=== PATIENT | male | born 1955 | race Caucasian/White ===

== ENCOUNTER → 2023-12-08 06:31 | Day surgery (SDC) | payer MEDICARE, OTHER, SELFPAY | LOC: GI 06:31 | PROVIDERS: ATTENDING PHYSICIAN Internal Medicine Gastroenterology; FAMILY PHYSICIAN Internal Medicine | DX: Z12.11 Encounter for screening for malignant neoplasm of colon (principal); Z86.010 Personal history of colon polyps; K57.30 Diverticulosis of large intestine without perforation or abscess without bleeding; K64.8 Other hemorrhoids; D12.4 Benign neoplasm of descending colon | CPT/HCPCS: 45380; 88305 ==

== ENCOUNTER → 2024-02-26 16:07 | Outpatient (REF) | payer MEDICARE, OTHER, SELFPAY | LOC: RCS 16:07 | PROVIDERS: ATTENDING PHYSICIAN Internal Medicine Cardiovascular Disease; FAMILY PHYSICIAN Internal Medicine | DX: I25.2 Old myocardial infarction (principal); R00.2 Palpitations | CPT/HCPCS: 93005 ==

== ENCOUNTER 2024-02-27 20:41 | Emergency (ER) | payer MEDICARE, OTHER, SELFPAY ==
[2024-02-27 21:14] LABS: % Basophils 0.6 % (0-2); % Eosinophils 2.9 % (0-6); % Immature Granulocytes 0.3 % (0-0.5); % Lymphocytes 43.9 % (20.5-51.1); % Monocytes 11.7 % (1.7-9.3); % Neutrophils 40.6 % (42.2-75.2); Absolute Eosinophils 0.2 10^3/uL (0-0.7); Absolute Lymphocytes 3.2 10^3/uL (1.2-3.4); Absolute Monocytes 0.9 10^3/uL (0.1-0.6); Absolute Neutrophils 2.9 10^3/uL (1.4-6.5); Hematocrit 39.8 % (39.0-52.0); Mean Corp Hgb Conc. 35.2 g/dL (33.0-37.0); Mean Corpuscular Hgb 30.8 pg (27.0-31.0); Mean Corpuscular Volume 87.7 fL (80.0-94.0); Mean Platelet Volume 10.2 fL (7.4-10.4); Nucleated Red Blood Cells % 0 % (-); Platelet Count 153 10^3/uL (130-400); Red Blood Cell Count 4.54 10^6/uL (4.70-6.10); Red Cell Dist. Width 12.6 % (11.5-14.5); White Blood Cell Count 7.2 10^3/uL (4.8-10.8)
[2024-02-27 21:25] LABS: ALT (SGPT) 28 U/L (0-50); AST (SGOT) 30 U/L (17-59); Albumin 4.2 g/dl (3.5-5.0); Alkaline Phosphatase 79 U/L (38-126); Blood Urea Nitrogen 23 mg/dl (9-20); Calcium 9.8 mg/dl (8.4-10.2); Carbon Dioxide 26 mmol/L (22-30); Chloride 105 mmol/L (98-107); Glucose 91 mg/dl (70-99); Potassium 4.2 mmol/L (3.5-5.1); Sodium 138 mmol/L (135-145); Total Bilirubin 0.5 mg/dl (0.2-1.3); eGFR > 60.00
[2024-02-27 21:35] LABS: Troponin I < 0.012 ng/ml
[2024-02-27 22:57] VITALS: BP 125/76
[2024-02-27 23:43] VITALS: BP 120/83
[2024-02-28] VITALS: BP 106/57
--- NOTE | 2024-02-28 00:59 | ED.GENMED ---
History of Present Illness
General
Chief Complaint: Heart Rate Problem
Source: patient, records and spouse
Exam Limitations: none
Time Seen by Provider: 02/28/24 00:37
Nursing documentation reviewed up to this point in time: agreed with
Travel History
Have you had any contact with someone who has COVID-19?: No
Do you have any symptoms of coronavirus? Fever > 100 degrees, chills, cough, shortness of breath, sore throat, loss of taste or smell, muscle aches, or headache?: No
History of Present Illness
History of Present Illness:
68-year-old male presents with a fluttering feeling in his chest described as bubbling, different than his prior arrhythmia that was found on a Holter monitor few years ago he is on metoprolol atorvastatin baby aspirin drinks tea takes decaffeinated
coffee non-smoker no alcohol no chest pains no leg edema no fevers
Past History
Past History
ED Past Medical History: CAD, HTN, Hypercholesterolemia and [place]
ED Past Surgical History: Cardiac (1 stent) and Orthopedic
Social History
Tobacco: Non-smoker
Alcohol: None
Drug: None
Personal:
Living: with family
Employment: Employed
Family History
Family History: Early CAD
Review of Systems
Review of Systems
All Other Systems: ROS reviewed and negative except as documented in HPI and ROS
Constitutional: Denies fever or fatigue
Respiratory: Denies cough or trouble breathing
Cardiac: Reports palpitations; Denies chest pain, diaphoresis or syncope
: Reports no symptoms
Skin: Reports no symptoms
Neurological: Reports no symptoms
Phy Exam
Physical Exam
Physical Exam:
Physical Exam
General: no apparent distress, not acutely ill
Neck without jaundice
Heart: Regular
Lungs: no acute respiratory distress. clear bilaterally
Abdomen: Not tender
Neuro: alert and oriented. no focal neurological deficits
Skin: no rash
Psychiatric: well kept. interactive and cooperative
Extremities: no edema. no calf tenderness.
Course
Orders/Labs/Results
Orders:
Orders
02/27/24 20:47
EKG [Electrocardiogram (*1)] Urgent
Reason for Study: Palpitations
EKG- Treatment ONCE
02/27/24 21:02
Comprehensive Metabolic Panel Urgent
Magnesium Urgent
Comment: ADD ON
Troponin I Urgent
02/27/24 21:03
Complete Blood Count/With Diff Urgent
02/28/24 00:58
Add On- LAB Urgent
Tests Added?: magnesium
0.9% Sodium Chloride 500 ml [Nss] 500 ml IV BOLUS
02/28/24 00:59
Add On- LAB Urgent
Tests Added?: magnesium
Abnormal Lab Results
02/27/24 02/27/24
21:02 21:03
RBC 4.54 L 10^6/uL
(4.70-6.10)
Absolute Monos (auto) 0.9 H 10^3/uL
(0.1-0.6)
Neutrophils % 40.6 L %
(42.2-75.2)
Monocytes % 11.7 H %
(1.7-9.3)
BUN 23 H mg/dl
(9-20)
02/27/24 21:03
02/27/24 21:02
Vital Signs
Initial and Last Documented VS:
Initial Vital Signs
Temp Pulse Resp BP Pulse Ox
98.7 F 71 20 125/76 97
02/27/24 22:57 02/27/24 22:57 02/27/24 22:57 02/27/24 22:57 02/27/24 22:57
Last Documented Vital Signs
Temp Pulse Resp BP Pulse Ox
98.7 F 62 13 117/62 98
02/27/24 22:57 02/28/24 01:45 02/28/24 01:45 02/28/24 01:00 02/28/24 01:45
*Pulse Oximetry
Patient hypoxic: no
*EKG
Interpreted by ED Provider?: Yes
Interpretation: normal
Comparison EKG: no comparison EKG present
Heart Rate: 70
Rate: normal
Rhythm: sinus
Interval: normal interval
Ischemia: no ischemia
*Meringuer Interpretation
Rate: normal
Interpretation: normal
Heart Rate: 78
Rhythm: sinus and PVC's
*Critical Care Note
Total Time (30-74mins, 75-104mins- exclusive of procedures): Not Applicable
Data Reviewed
Review of Other/Old Records Reveals: Labs and Operative Reports
Source: patient
Update Note
Update Note:
Update labs are noted we will start some hydration, check magnesium, keep on manager cardiac prior records reviewed patient does have history of CAD and stenting he tells me his symptoms recently are not at all similar to his prior angina requiring
stenting
210 labs are noted
ED Attending Note
-
Portions of this chart may have been created with voice recognition software.� Occasional wrong word or��sound alike� substitutions may have occurred due to the inherent limitations of voice recognition software.
Discharge Plan
Departure
Patient Disposition: Home (Routine Discharge)
Date of Disposition: 02/28/24
Time of Disposition: 02:12
Patient with high blood pressure during this ER visit?: No
Condition: Good
Discharge Problem:
Heart palpitations
Instructions: Palpitations (DC)
Prescriptions:
No Action
atorvastatin 10 MG tablet
20 mg PO HS
clopidogrel 75 MG tablet
75 mg PO HS
aspirin 81 MG tablet,delayed release (DR/EC)
81 mg PO HS
metoprolol succinate 25 MG tablet extended release 24 hr
25 mg PO HS
calcium carbonate [Antacid (calcium carbonate)] 1 TABLET tablet,chewable
2 tab PO DAILYPRN PRN (Reason: indigestion)
melatonin 5 MG tablet
5 mg PO HS
pantoprazole 40 MG tablet,delayed release (DR/EC)
40 mg PO DAILY Qty: 90 3RF
methylprednisolone [Medrol (Wale)] 4 mg tablets,dose pack
4 mg PO DIRECTED Qty: 21 0RF
lidocaine [Lidoderm] 5 % adhesive patch,medicated
1 patch topical DAILY Qty: 30 0RF
Referrals:
Charissa Lama MD [Family Provider] -
Activity Restrictions/Additional Instructions:
Treat plenty of fluids limit your caffeine intake as discussed
Follow-up with cardiology as scheduled
Interventions
Interventions:
*Risk Screen - Suicide Last Done: 02/27/24 20:48
*General Assessment Last Done: 02/27/24 20:48
*Neglect/Abuse Screening Last Done: 02/27/24 20:48
ED- Cardiac Assessment Last Done: 02/27/24 23:46
ED- Pulmonary Assessment Last Done: 02/27/24 23:46
Discharge Date and Time
Print Language: ESTONIAN
[2024-02-28 01:00] VITALS: BP 117/62
[2024-02-28] MEDS: NSS 500 IV (01:28)
[2024-02-28 01:54] LABS: Magnesium 1.9 mg/dl (1.6-2.3)
[2024-02-28 02:00] VITALS: BP 111/72
== END 2024-02-28 02:27 | disposition home or self-care (01) ==
LOC: EMR 20:41
PROVIDERS: EMERGENCY PHYSICIAN Emergency Medicine; FAMILY PHYSICIAN Internal Medicine
DX: R00.2 Palpitations (principal); I25.10 Atherosclerotic heart disease of native coronary artery without angina pectoris; I10 Essential (primary) hypertension; E78.00 Pure hypercholesterolemia, unspecified; I25.2 Old myocardial infarction; I49.3 Ventricular premature depolarization; Z82.49 Family history of ischemic heart disease and other diseases of the circulatory system
CPT/HCPCS: 99283; 80053; 83735; 84484; 85025; 93005

== ENCOUNTER → 2024-10-14 13:37 | Outpatient (REF) | payer MEDICARE, OTHER, SELFPAY | LOC: DHSLP 13:37 | PROVIDERS: ATTENDING PHYSICIAN Internal Medicine; FAMILY PHYSICIAN Internal Medicine | DX: G47.33 Obstructive sleep apnea (adult) (pediatric) (principal) | CPT/HCPCS: 95800 ==

== ENCOUNTER 2024-11-14 14:15 | Emergency (ER) | payer MEDICARE, OTHER, SELFPAY ==
[2024-11-14 14:16] VITALS: BP 132/83
[2024-11-14] MEDS: TYLENOL 1000 MG PO (15:10)
[2024-11-14] MEDS: TORADOL 15 MG IV (15:10)
[2024-11-14] MEDS: VALIUM INJECTION 10 MG IV (15:11)
--- NOTE | 2024-11-14 15:11 | ED.GENMED ---
History of Present Illness
General
Chief Complaint: Musculo-Skeletal Complaint
Source: patient
Exam Limitations: none
Time Seen by Provider: 11/14/24 14:32
Nursing documentation reviewed up to this point in time: agreed with
History of Present Illness
History of Present Illness:
69 y/o M h/o CAD
chronic lumbar disc disease
s/p lumbar surgery years ago
has not had neck issues
says he woke up yesterday with soreness in his neck and felt limited ROM
he says yesterday in total he took 3 doses of 400 mg motrin wihtout relief and woke up today feeling more stiff
has very painful limited ROM
no weaknses, numbness, radiation of pain into arms or legs, fever/chills, trauma, blurry vision, dizziness
pt has not had cervical imaging in a while
nothing for pain today
Past History
Past History
ED Past Medical History: CAD, HTN, Hypercholesterolemia and [place]
ED Past Surgical History: Cardiac (1 stent) and Orthopedic
Social History
Tobacco: Non-smoker
Alcohol: None
Drug: None
Personal:
Living: with family
Employment: Employed
Family History
Family History: Early CAD
Review of Systems
Review of Systems
Allergies reviewed?: Yes
All Other Systems: Not applicable
Phy Exam
Physical Exam
Physical Exam:
GENERAL: Alert , in no apparent distress
EYE: pupils equal and reactive
NECK: Very limited painful range of motion of the neck, no tenderness, some palpable spasm of the paraspinal muscles
ENT: o/p clr, mmm.
CARDIAC: Regular rate and rhythm .
LUNGS: Clear breath sounds bilaterally, no acute respiratory distress, no wheezes/rales/rhonchi
ABDOMEN: Soft, without focal tenderness, no r/g, no cvat, normal bowel sounds
NEUROLOGICAL: Alert and oriented, no focal neuro deficits, normal strength and sensation, cranial nerves intact,
SKIN: Warm and dry, skin intact.
MUSCULOSKELETAL: No edema, well perfused. neg jo's sign
PSYCH: Normal and appropriate interaction.
Course
Orders/Labs/Results
Orders:
Orders
11/14/24 14:59
Cervical Spine wo Contrast CT [CT Cervical Spine W/o Iv Contr] Urgent
Comment:
Reason For Exam: neck pain, stiffness, no trauma
Acetaminophen [Tylenol] 1,000 mg PO NOW STA
Ketorolac [Toradol] 15 mg IV NOW STA
diazePAM [Valium Injection] 10 mg IV NOW STA
Vital Signs
Initial and Last Documented VS:
Initial Vital Signs
Temp Pulse Resp BP Pulse Ox
36.9 C 90 18 132/83 99
11/14/24 14:16 11/14/24 14:16 11/14/24 14:16 11/14/24 14:16 11/14/24 14:16
Last Documented Vital Signs
Temp Pulse Resp BP Pulse Ox
36.9 C 90 18 132/83 99
11/14/24 14:16 11/14/24 14:16 11/14/24 14:16 11/14/24 14:16 11/14/24 14:16
MDM/Problems Addressed
Differential Diagnosis Includes:
cervical disc disease, torticollis
MDM/Problems Addressed:
69 y/o M
ho lumbar disc disease in the past
odesn't usually have neck pain
here with stiff neck since yesterday gradually worse
now not able to move neck today
no fever/chills recent trauma, chiropractor adjustment
has had problems with back ocking up but never neck
on exam has very limited ROM
stable vitals
nontender
neuro intact
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
will obtain imaging given pt's age with ct cervical spine
valium, nsids,
ED Attending Note
-
Portions of this chart may have been created with voice recognition software.� Occasional wrong word or��sound alike� substitutions may have occurred due to the inherent limitations of voice recognition software.
Discharge Plan
Departure
Prescriptions:
No Action
atorvastatin 10 MG tablet
20 mg PO HS
clopidogrel 75 MG tablet
75 mg PO HS
aspirin 81 MG tablet,delayed release (DR/EC)
81 mg PO HS
metoprolol succinate 25 MG tablet extended release 24 hr
25 mg PO HS
calcium carbonate [Antacid (calcium carbonate)] 1 TABLET tablet,chewable
2 tab PO DAILYPRN PRN (Reason: indigestion)
melatonin 5 MG tablet
5 mg PO HS
pantoprazole 40 MG tablet,delayed release (DR/EC)
40 mg PO DAILY Qty: 90 3RF
methylprednisolone [Medrol (Wale)] 4 mg tablets,dose pack
4 mg PO DIRECTED Qty: 21 0RF
lidocaine [Lidoderm] 5 % adhesive patch,medicated
1 patch topical DAILY Qty: 30 0RF
Referrals:
Charissa Lama MD [Family Provider] -
Interventions
Interventions:
*Risk Screen - Suicide Last Done: 11/14/24 14:16
*General Assessment Last Done: 11/14/24 14:16
*Neglect/Abuse Screening Last Done: 11/14/24 14:16
*ED COVID-19 Vaccine History Last Done: 11/14/24 14:16
ED-Musculoskeletal Assessment Last Done: 11/14/24 15:35
Discharge Date and Time
Print Language: CYMRAES
== END 2024-11-14 17:55 | disposition home or self-care (01) ==
LOC: EMR 14:15
PROVIDERS: EMERGENCY PHYSICIAN Emergency Medicine; FAMILY PHYSICIAN Internal Medicine
DX: M43.6 Torticollis (principal); I25.10 Atherosclerotic heart disease of native coronary artery without angina pectoris; I10 Essential (primary) hypertension; E78.00 Pure hypercholesterolemia, unspecified; Z82.49 Family history of ischemic heart disease and other diseases of the circulatory system; Z95.5 Presence of coronary angioplasty implant and graft
CPT/HCPCS: 99284; 72125